=== PATIENT | male | born 1970 | race Asian ===

== ENCOUNTER 2018-05-17 06:35 | Day surgery (SDC) | payer OTHER ==
[~2018-05-17] VITALS: Ht 172.7 cm; Wt 93.0 kg
[~2018-05-17 06:35] MED LIST: SODIUM CHLORIDE 0.9% 1,000 ML IV ONE
[2018-05-17] MEDS ORDERED: LIDOCAINE 2% 30 ML JELLY TP ONE (06:36)
[2018-05-17] MEDS ORDERED: BENZOCAINE 20% 50 MCG/SPRAY 57 GM TP ONE (06:36)
[2018-05-17] MEDS ORDERED: ALBUTEROL SULFATE 2.5 MG/0.5 ML NEB SOLUTION NEB ONE (06:36)
[2018-05-17] MEDS ORDERED: FentaNYL CITRATE-PF 100 MCG/2 ML VIAL ONE (07:56)
[2018-05-17] MEDS ORDERED: MIDAZOLAM HCL 2 MG/2 ML VIAL ONE (07:56)
[2018-05-17] MEDS ORDERED: LISI-661 PO (08:02)
[2018-05-17] MEDS ORDERED: MONT10TA21 PO (08:02)
[2018-05-17] MEDS ORDERED: ATOR40TA28 PO (08:02)
[2018-05-17] MEDS ORDERED: LEVO500 PO (08:02)
[2018-05-17] MEDS ORDERED: RANI150T7 PO (08:02)
[2018-05-17] MEDS ORDERED: TERB250 PO (08:02)
[2018-05-17] MEDS ORDERED: MethylPREDNISolone SOD SUCC 125 MG/2 ML VIAL IVP ONE (09:45)
[2018-05-17] MEDS ORDERED: MethylPREDNISolone SOD SUCC 125 MG/2 ML VIAL ONE (10:00)
[2018-05-17] MEDS ORDERED: OXYGEN THERAPY IH SCH (20:00)
== END 2018-05-17 11:15 | disposition home or self-care (01) ==
LOC: SURGERY 06:35
PROVIDERS: ATTEND Internal Medicine Critical Care Medicine
DX: J38.4 Edema of larynx (principal); B37.0 Candidal stomatitis; R91.1 Solitary pulmonary nodule; J45.909 Unspecified asthma, uncomplicated; G47.30 Sleep apnea, unspecified; I10 Essential (primary) hypertension; Z87.891 Personal history of nicotine dependence; Z88.0 Allergy status to penicillin; Z79.899 Other long term (current) drug therapy; Z98.890 Other specified postprocedural states
CPT/HCPCS: 31623; 31624; 71045; 87015; 87070; 87205; 87206; 87220; 88108; 88312; J2250; J2930; J3010; J7030